=== PATIENT | female | born 1950 | race American Indian/Alaskan Native ===

== ENCOUNTER 2017-03-24 10:26 | Inpatient (IN) | payer MEDICARE, MEDICAID ==
--- NOTE | 2017-03-24 11:48 | C.PDOC ---
History Of Present Illness 66 y/o female with PMH MDD with psychosis, HTN, hyperlipidemia, osteoporosis brought to ED from adult day care for witnessed seizure. Patient states, "they told me I had a seizure". When asked about history, patient is unclear, states, "I think I had seizures before, I am not sure, I had a brain tumor". Denies pain , head trauma, incontinence, chest pain, abdominal pain, sob, visual changes, tongue bite. Patient states she does not take seizure medication. PT poor historian. Time Seen by Provider: 03/24/17 10:38 Chief Complaint (Nursing): Seizure History Per: Patient History/Exam Limitations: other (poor historian) Recent Seizure Activity Began: Unknown Length Of Seizures (Duration): Unknown Post-ictal Period: No Recent travel outside of the [place]: No Past Medical History Reviewed: Historical Data, Nursing Documentation, Vital Signs Vital Signs: Last Vital Signs Temp 97.7 F 03/24/17 10:40 Pulse 97 H 03/24/17 16:49 Resp 18 03/24/17 16:49 BP 125/78 03/24/17 16:49 Pulse Ox 99 03/24/17 16:49 - Medical History PMH: Depression, HTN, Osteoporosis - [facility] Procedures CLOSED ENDOSCOPIC BIOPSY OF LARGE INTESTINE (10/15/04) COLONOSCOPY (02/29/04) FLEXIBLE SIGMOIDOSCOPY (08/08/04) PERCUTAN NEEDLE BX OF THYROID GLAND (08/17/06) RIGID PROCTOSIGMOIDOSCOPY (09/17/04) Family History: States: No Known Family Hx - Social History Hx Alcohol Use: No Hx Substance Use: No - Immunization History Hx Tetanus Toxoid Vaccination: No Hx Influenza Vaccination: No Hx Pneumococcal Vaccination: No Review Of Systems Except As Marked, All Systems Reviewed And Found Negative. Constitutional: Negative for: Fever, Chills Cardiovascular: Negative for: Chest Pain Respiratory: Negative for: Cough, Shortness of Breath Gastrointestinal: Negative for: Vomiting Skin: Negative for: Rash Neurological: Negative for: Headache Physical Exam - Physical Exam Appears: Non-toxic, No Acute Distress, Other (no signs of post ictal) Skin: Warm, Dry Head: Atraumatic, Normacephalic Eye(s): bilateral: Normal Inspection, PERRL, EOMI Nose: Normal Oral Mucosa: Moist Neck: Normal ROM, Supple Chest: Symmetrical Cardiovascular: Rhythm Regular Respiratory: Normal Breath Sounds, No Rales, No Rhonchi, No Wheezing Gastrointestinal/Abdominal: Normal Exam, Soft, No Tenderness, No Guarding, No Rebound Back: Normal Inspection Extremity: Normal ROM, Capillary Refill (< 2 sec.) Neurological/Psych: Oriented x3, Normal Speech, Normal Cognition, Other (no focal deficits) ED Course And Treatment - Laboratory Results Result Diagrams: 03/24/17 11:43 03/24/17 11:43 O2 Sat by Pulse Oximetry: 98 (RA) Pulse Ox Interpretation: Normal - CT Scan/US CT HEAD Other Rad Studies (CT/US): Read By Radiologist, Radiology Report Reviewed CT/US Interpretation: Accession No. : [id number]. Patient Name / ID : HAYLIE NORMAN / [id number]. Exam Date : 03/24/2017 11:48:21 ( Approved ). Study Comment : Sex / Age : F / 66Y. Creator : Radha Beavers. Dictator : Nolvia Brock MD. Guide Visitor : Private Duty Lpn : Nolvia Brock MD. Approver2 : Report Date : 03/24/2017 11:56:36. My Comment : . PROCEDURE: CT HEAD WITHOUT CONTRAST. HISTORY: seizure. COMPARISON: None available. TECHNIQUE: Axial computed tomography images were obtained through the head/ brain without intravenous contrast. Radiation dose: Total exam DLP = 1106.37 mGy-cm. This CT exam was performed using one or more of the following dose reduction techniques: Automated exposure control, adjustment of the mA and/or kV according to patient size, and/or use of iterative reconstruction technique. FINDINGS: HEMORRHAGE: No intracranial hemorrhage. BRAIN: There is cystic encephalomalacia in the left temporal lobe with ex vacuo dilatation of the left temporal horn of lateral ventricle. There is no mass, mass effect or abnormal extra-axial fluid collection. VENTRICLES: The ventricles are normal in size, shape and configuration. CALVARIUM: Status post left parietal and temporal craniotomy. PARANASAL SINUSES: Predominantly clear. MASTOID AIR CELLS: Predominantly clear. OTHER FINDINGS: None. IMPRESSION: No acute intracranial abnormality. Status post left parietal and temporal craniotomy, left temporal lobe cystic encephalomalacia compatible with sequela of remote insult. Progress Note: Case discussed with Dr William, agreed upon plan and admission. Medical Decision Making Medical Decision Making: Plan: * CT Head * Labs * Reassess Progress: Dr. Kristy Sims called, whose office reports she has retired, talked with Dr. Nicole who does not know the patient. Called pt's mother, Radha, no answer. Cased discussed with medicine monotype caster Dr. William who agrees upon admission. Case discussed with Dr. Watkins, agrees on plan of treatment. Disposition - Disposition Disposition: HOSPITALIZED Disposition Time: 11:00 Condition: STABLE - Clinical Impression Clinical Impression: Seizure - PA / CUSTOMS COMPLIANCE DIRECTOR / Resident Statement MD/DO has reviewed & agrees with the documentation as recorded. - Scribe Statement The provider has reviewed the documentation as recorded by the Scribe sm All medical record entries made by the Scribe were at my direction and personally dictated by me. I have reviewed the chart and agree that the record accurately reflects my personal performance of the history, physical exam, medical decision making, and the department course for this patient. I have also personally directed, reviewed, and agree with the discharge instructions and disposition.
[2017-03-24 11:55] LABS: BASO % 0.8 % (0.0-2.0); EOS % 0.6 % (0.0-4.0); LYMPH # 0.8 K/uL (1.0-4.3); LYMPH % 14.3 % (20.0-40.0); MEAN CELL VOLUME 86.8 fL (81.0-99.0); MEAN CORPUSCULAR HEMOGLOBIN 28.4 pg (27.0-31.0); MEAN CORPUSCULAR HGB CONC 32.8 g/dL (33.0-37.0); MEAN PLATELET VOLUME 7.8 fL (7.2-11.7); MONO # 0.3 K/uL (0.0-0.8); MONO % 6.1 % (0.0-10.0); RED CELL DISTRIBUTION WIDTH 13.9 % (11.5-14.5); WHITE BLOOD COUNT 5.7 K/uL (4.8-10.8)
--- NOTE | 2017-03-24 12:10 | CT ---
PROCEDURE: CT HEAD WITHOUT CONTRAST. HISTORY: seizure COMPARISON: None available. TECHNIQUE: Axial computed tomography images were obtained through the head/brain without intravenous contrast. Radiation dose: Total exam DLP = 1106.37 mGy-cm. This CT exam was performed using one or more of the following dose reduction techniques: Automated exposure control, adjustment of the mA and/or kV according to patient size, and/or use of iterative reconstruction technique. FINDINGS: HEMORRHAGE: No intracranial hemorrhage. BRAIN: There is cystic encephalomalacia in the left temporal lobe with ex vacuo dilatation of the left temporal horn of lateral ventricle. There is no mass, mass effect or abnormal extra-axial fluid collection VENTRICLES: The ventricles are normal in size, shape and configuration. CALVARIUM: Status post left parietal and temporal craniotomy. PARANASAL SINUSES: Predominantly clear. MASTOID AIR CELLS: Predominantly clear. OTHER FINDINGS: None. IMPRESSION: No acute intracranial abnormality. Status post left parietal and temporal craniotomy, left temporal lobe cystic encephalomalacia compatible with sequela of remote insult.
[2017-03-24 12:13] LABS: ALB/GLOB RATIO 1.1 (1.0-2.1); ALCOHOL SERUM < 10 mg/dl (0-10); ALKALINE PHOSPHATASE 82 U/L (38-126); ALT/SGPT 46 U/L (9-52); AST/SGOT 40 U/L (14-36); BILIRUBIN,TOTAL 0.6 mg/dL (0.2-1.3); BLOOD UREA NITROGEN 9 mg/dL (7-17); CALCIUM 8.9 mg/dl (8.6-10.4); CARBON DIOXIDE 32 mmol/L (22-30); CHLORIDE 100 mmol/L (98-107); GFR AFRICAN-AMERICAN > 60; GLUCOSE,RANDOM 89 mg/dL (65-105); POTASSIUM 3.9 mmol/L (3.6-5.2); SODIUM 139 mmol/L (132-148); TOTAL PROTEIN 8.6 g/dL (6.3-8.3)
[2017-03-24 13:34] LABS: RBC URINE 3 /hpf (0-3); URINE BACTERIA OCC (<OCC); URINE BILIRUBIN NEGATIVE (NEGATIVE); URINE BLOOD 2+ (NEGATIVE); URINE COLOR Straw (YELLOW); URINE GLUCOSE (UA) NORMAL (Normal); URINE KETONE NEGATIVE (NEGATIVE); URINE LEUKOCYTE ESTERASE NEG Leu/uL (Negative); URINE PROTEIN NEGATIVE (NEGATIVE); URINE UROBILINOGEN NORMAL mg/dL (0.2-1.0); WBC URINE 1 /hpf (0-5)
--- NOTE | 2017-03-24 16:28 | CP.PCM.HP ---
History of Present Illness - History of Present Illness History of Present Illness: A 66-year-old female with PMHdepression, HTN, osteoporosis and psychosis presents to the ER following a seizure. C/ seizure in a [facility] today. In form of tightening of all 4 limbs, in form of 14 from mouth, associated with up rolling of eyeballs. C/Oloss of consciousness following seizure for about a few minutes. Patient did not notice seizure, she was told that she had a seizure by others. No C/Ofever, chills, vomiting, tinnitus, weakness of any extremities. Present on Admission - Present on Admission Any Indicators Present on Admission: No Past Patient History - Past Medical History & Family History Past Medical History?: Yes - Past Social History Smoking Status: Never Smoked - CARDIAC Hx Hypercholesterolemia: Yes Hx Hypertension: Yes - NEUROLOGICAL Hx Seizures: Yes Other/Comment: [place] [facility] [place] MUSCULOSKELETAL/RHEUMATOLOGICAL Hx Falls: Yes Hx Osteoporosis: Yes - PSYCHIATRIC Hx Depression: Yes Hx Substance Use: No - SURGICAL HISTORY Hx Surgeries: Yes Hx Breast Biopsy: Yes (Left cyst) Other/Comment: 2011 [place] [facility] [place]ESTH[place] Hx Anesthesia: Yes Hx Anesthesia Reactions: No Hx Malignant Hyperthermia: No Meds Allergies/Adverse Reactions: Allergies Allergy/AdvReac Type Severity Reaction Status Date / Time No Known Allergies Allergy Verified 03/24/17 10:45 Physical Exam - Constitutional Appears: Well - Head Exam Head Exam: ATRAUMATIC, NORMAL INSPECTION, NORMOCEPHALIC - Eye Exam Eye Exam: EOMI, Normal appearance, PERRL Pupil Exam: NORMAL ACCOMODATION, PERRL - ENT Exam ENT Exam: Mucous Membranes Moist, Normal Exam - Neck Exam Neck exam: Positive for: Normal Inspection - Respiratory Exam Respiratory Exam: Decreased Breath Sounds - Cardiovascular Exam Cardiovascular Exam: REGULAR RHYTHM, +S1, +S2 - GI/Abdominal Exam GI & Abdominal Exam: Diminished Bowel Sounds, Soft - Rectal Exam Rectal Exam: Deferred Results - Vital Signs Recent Vital Signs: Last Vital Signs Temp 97.7 F 03/24/17 10:40 Pulse 92 H 03/24/17 13:06 Resp 18 03/24/17 13:06 BP 135/84 03/24/17 13:06 Pulse Ox 98 03/24/17 14:21 - Labs Result Diagrams: 03/24/17 11:43 03/24/17 11:43 Labs: Laboratory Results - last 24 hr 03/24/17 03/24/17 03/24/17 11:39 11:43 11:43 WBC 5.7 RBC 4.39 Hgb 12.5 Hct 38.0 MCV 86.8 MCH 28.4 MCHC 32.8 L RDW 13.9 Plt Count 256 MPV 7.8 Neut % (Auto) 78.2 H Lymph % (Auto) 14.3 L Letcher % (Auto) 6.1 Eos % (Auto) 0.6 Baso % (Auto) 0.8 Neut # 4.5 Lymph # 0.8 L Letcher # 0.3 Eos # 0.0 Baso # 0.0 Sodium 139 Potassium 3.9 Chloride 100 Carbon Dioxide 32 H Anion Gap 11 BUN 9 Creatinine 0.8 Est GFR ( Amer) > 60 Est GFR (Non-Af Amer) > 60 POC Glucose (mg/dL) 101 Random Glucose 89 Calcium 8.9 Total Bilirubin 0.6 AST 40 H ALT 46 Alkaline Phosphatase 82 Total Creatine Kinase 438 H CK-MB (Mass) 2.45 Total Protein 8.6 H Albumin 4.5 Globulin 4.2 H Albumin/Globulin Ratio 1.1 Urine Color Urine Clarity Urine pH Ur Specific Diana Urine Protein Urine Glucose (UA) Urine Ketones Urine Blood Urine Nitrate Urine Bilirubin Urine Urobilinogen Ur Leukocyte Esterase Urine WBC (Auto) Urine RBC (Auto) Ur Squamous Epith Cells Urine Bacteria Urine Opiates Screen Urine Methadone Screen Ur Barbiturates Screen Ur Phencyclidine Scrn Ur Amphetamines Screen U Benzodiazepines Scrn U Oth Cocaine Metabols U Cannabinoids Screen Alcohol, Quantitative < 10 03/24/17 03/24/17 13:04 13:04 WBC RBC Hgb Hct MCV MCH MCHC RDW Plt Count MPV Neut % (Auto) Lymph % (Auto) Letcher % (Auto) Eos % (Auto) Baso % (Auto) Neut # Lymph # Letcher # Eos # Baso # Sodium Potassium Chloride Carbon Dioxide Anion Gap BUN Creatinine Est GFR ( Amer) Est GFR (Non-Af Amer) POC Glucose (mg/dL) Random Glucose Calcium Total Bilirubin AST ALT Alkaline Phosphatase Total Creatine Kinase CK-MB (Mass) Total Protein Albumin Globulin Albumin/Globulin Ratio Urine Color Straw Urine Clarity Clear Urine pH 7.0 Ur Specific Diana 1.004 Urine Protein Negative Urine Glucose (UA) Normal Urine Ketones Negative Urine Blood 2+ H Urine Nitrate Negative Urine Bilirubin Negative Urine Urobilinogen Normal Ur Leukocyte Esterase Neg Urine WBC (Auto) 1 Urine RBC (Auto) 3 Ur Squamous Epith Cells 1 Urine Bacteria Occ H Urine Opiates Screen Negative Urine Methadone Screen Negative Ur Barbiturates Screen Negative Ur Phencyclidine Scrn Negative Ur Amphetamines Screen Negative U Benzodiazepines Scrn Negative U Oth Cocaine Metabols Negative U Cannabinoids Screen Negative Alcohol, Quantitative
[2017-03-24] MEDS: Pantoprazole 40 mg EC Tab PO SCH (17:30)
[2017-03-24] MEDS: Enoxaparin 40 mg Syringe SC SCH (17:35)
[2017-03-24 18:09] VITALS: RESP 20
[2017-03-24] MEDS: Rosuvastatin Calcium 2.5 mg Tab PO SCH (21:52)
[2017-03-24] MEDS: buPROPion SR 150 MG TABLET PO SCH (22:08)
--- NOTE | 2017-03-25 07:32 | CP.PCM.CON ---
History of Present Illness - History of Present Illness History of Present Illness: CONSULT DICTATED SEIZURES SUB THERAPEUTIC AED ? SEC TO BUPROPION OR ABLIFY MRI/ EEG PSYCH CONSULT Past Patient History - Past Medical History & Family History Past Medical History?: Yes - Past Social History Smoking Status: Unknown If Ever Smoked - CARDIAC Hx Hypertension: Yes - NEUROLOGICAL Hx Seizures: Yes Other/Comment: brain tumor removal at [facility] [place] - MUSCULOSKELETAL/RHEUMATOLOGICAL Hx Osteoporosis: Yes - PSYCHIATRIC Hx Substance Use: No - SURGICAL HISTORY Hx Surgeries: Yes Hx Breast Biopsy: Yes (Left cyst) Other/Comment: [address] [facility] [place] - ANESTHESIA Hx Anesthesia: Yes Hx Anesthesia Reactions: No Hx Malignant Hyperthermia: No Meds Allergies/Adverse Reactions: Allergies Allergy/AdvReac Type Severity Reaction Status Date / Time No Known Allergies Allergy Verified 03/24/17 10:45 - Medications Medications: Current Medications Amlodipine Besylate (Norvasc) 5 mg PO DAILY [facility] Aripiprazole (Abilify) [address] [facility] Last Admin: 03/24/17 21:58 Dose: 30 mg Bupropion HCl (Wellbutrin Sr 150 Mg) 150 mg PO [facility] Last Admin: 03/24/17 22:08 Dose: 150 mg Enoxaparin Sodium (Lovenox) 40 mg SC DAILY [facility] Last Admin: 03/24/17 17:35 Dose: 40 mg Escitalopram Oxalate (Lexapro) 20 mg PO DAILY [facility] Hydroxyzine HCl (Atarax) 50 mg PO HS [facility] Last Admin: 03/24/17 21:52 Dose: 50 mg Iron (Ferocon) 1 cap PO DAILY [facility] Levetiracetam (Keppra) 500 mg PO BID [facility] Last Admin: 03/24/17 18:05 Dose: 500 mg Pantoprazole Sodium (Protonix Ec Tab) 40 mg PO DAILY [facility] Last Admin: 03/24/17 17:30 Dose: 40 mg Pneumococcal Polyvalent Vaccine (Pneumovax 23 Vaccine) 0.5 ml IM .ONCE ONE Stop: 03/27/17 10:01 Rosuvastatin Calcium (Crestor) 2.[address] [facility] Last Admin: 03/24/17 21:52 Dose: 2.5 mg Results - Vital Signs Recent Vital Signs: Last Vital Signs Temp 98.1 F 03/25/17 00:00 Pulse 81 03/25/17 00:00 Resp 20 03/25/17 00:00 BP 106/69 03/25/17 00:00 Pulse Ox 96 03/25/17 00:00 - Labs Result Diagrams: 03/24/17 11:43 03/24/17 11:43 Labs: Laboratory Results - last 24 hr 03/24/17 03/24/17 03/24/17 11:39 11:43 11:43 WBC 5.7 RBC 4.39 Hgb 12.5 Hct 38.0 MCV 86.8 MCH 28.4 MCHC 32.8 L RDW 13.9 Plt Count 256 MPV 7.8 Neut % (Auto) 78.2 H Lymph % (Auto) 14.3 L Drew % (Auto) 6.1 Eos % (Auto) 0.6 Baso % (Auto) 0.8 Neut # 4.5 Lymph # 0.8 L Drew # 0.3 Eos # 0.0 Baso # 0.0 Sodium 139 Potassium 3.9 Chloride 100 Carbon Dioxide 32 H Anion Gap 11 BUN 9 Creatinine 0.8 Est GFR ( Amer) > 60 Est GFR (Non-Af Amer) > 60 POC Glucose (mg/dL) 101 Random Glucose 89 Calcium 8.9 Total Bilirubin 0.6 AST 40 H ALT 46 Alkaline Phosphatase 82 Total Creatine Kinase 438 H CK-MB (Mass) 2.45 Total Protein 8.6 H Albumin 4.5 Globulin 4.2 H Albumin/Globulin Ratio 1.1 Urine Color Urine Clarity Urine pH Ur Specific [place] Urine Protein Urine Glucose (UA) Urine Ketones Urine Blood Urine Nitrate Urine Bilirubin Urine Urobilinogen Ur Leukocyte Esterase Urine WBC (Auto) Urine RBC (Auto) Ur Squamous Epith Cells Urine Bacteria Urine Opiates Screen Urine Methadone Screen Ur Barbiturates Screen Ur Phencyclidine Scrn Ur Amphetamines Screen U Benzodiazepines Scrn U Oth Cocaine Metabols U Cannabinoids Screen Alcohol, Quantitative < 10 03/24/17 03/24/17 13:04 13:04 WBC RBC Hgb Hct MCV MCH MCHC RDW Plt Count MPV Neut % (Auto) Lymph % (Auto) Drew % (Auto) Eos % (Auto) Baso % (Auto) Neut # Lymph # Drew # Eos # Baso # Sodium Potassium Chloride Carbon Dioxide Anion Gap BUN Creatinine Est GFR ( Amer) Est GFR (Non-Af Amer) POC Glucose (mg/dL) Random Glucose Calcium Total Bilirubin AST ALT Alkaline Phosphatase Total Creatine Kinase CK-MB (Mass) Total Protein Albumin Globulin Albumin/Globulin Ratio Urine Color Straw Urine Clarity Clear Urine pH 7.0 Ur Specific [place] 1.004 Urine Protein Negative Urine Glucose (UA) Normal Urine Ketones Negative Urine Blood 2+ H Urine Nitrate Negative Urine Bilirubin Negative Urine Urobilinogen Normal Ur Leukocyte Esterase Neg Urine WBC (Auto) 1 Urine RBC (Auto) 3 Ur Squamous Epith Cells 1 Urine Bacteria Occ H Urine Opiates Screen Negative Urine Methadone Screen Negative Ur Barbiturates Screen Negative Ur Phencyclidine Scrn Negative Ur Amphetamines Screen Negative U Benzodiazepines Scrn Negative U Oth Cocaine Metabols Negative U Cannabinoids Screen Negative Alcohol, Quantitative
[2017-03-25] MEDS: Ferrous Fum/Folic Acid/IF/VI 1 Cap PO SCH (09:44)
[2017-03-25] MEDS: Enoxaparin 40 mg Syringe SC SCH (09:45)
[2017-03-25] MEDS: buPROPion SR 150 MG TABLET PO SCH ×2 (09:46→21:06)
[2017-03-25] MEDS: Pantoprazole 40 mg EC Tab PO SCH (09:46)
[2017-03-25] MEDS ORDERED: Home Med 1 UNIT (Simvastatin [Simvastatin] 10 MG) PO SCH (10:00)
--- NOTE | 2017-03-25 13:35 | MRI ---
PROCEDURE: MRI BRAIN WITHOUT CONTRAST HISTORY: tumor recurrent?? COMPARISON: Noncontrast head CT from 03/24/2017 TECHNIQUE: Multiplanar, multisequence MR images of the brain were obtained without intravenous contrast enhancement. FINDINGS: HEMORRHAGE: None DWI: No evidence of an acute or early subacute infarction. BRAIN PARENCHYMA: There is ill defined T2 hyperintensity in the left lateral temporal subcortical white matter and cystic encephalomalacia in the left anterior temporal lobe. There are scattered T2/FLAIR hyperintense foci in the subcortical supratentorial white matter. There is no mass effect or abnormal extra-axial fluid collection. The midline sagittal structures are normal. VENTRICLES: There is mild age-related global parenchymal volume loss and proportionate enlargement of the ventricles and cortical sulci. There is ex vacuo dilatation of the left temporal horn and sylvian fissure related to volume loss. CRANIUM: There is normal bone marrow signal pattern. Status post parietal temporal craniotomy. ORBITS: Grossly unremarkable. PARANASAL SINUSES/MASTOIDS: Clear VASCULAR SYSTEM: Skull base flow voids intact. OTHER FINDINGS: None. IMPRESSION: Status post left parietal temporal craniotomy, cystic encephalomalacia in the left anterior temporal lobe with volume loss. Focal abnormal signal intensity in the left lateral subcortical white matter is nonspecific and could be related to gliosis however tumor cannot be excluded in the absence of intravenous contrast. MRI of the brain with intravenous contrast is recommended if there is a clinical concern for tumor recurrence. Comparison with prior MRI studies would also be helpful for definitive evaluation.
--- NOTE | 2017-03-25 15:49 | CON ---
DATE: 03/25/2017 ATTENDING PHYSICIAN: Stevenson William MD LOCATION: Room number 364, bed B. REASON FOR CONSULTATION: Recurrent seizure. CHIEF COMPLAINT: The patient was brought into the [facility] with a history of recurrent seizures. From neurological point of view, I was called in to evaluate her for further management. HISTORY OF PRESENT ILLNESS: Ms. Brooke Hernández is a 66-year-old right-handed female, usual state of health, had a seizure. She could not tell exactly when and who witnessed it. However, she had a similar seizure 5 years ago before surgery. She had a history of left-sided craniotomy because of the brain tumor in 2011. The surgery was performed in [facility], following that the patient did have seizures, had been treated with the medications. The patient has severe depression, being followed by psychiatrist and taking multiple medications for the same. PERSONAL HISTORY: She denies smoking or alcohol use. ALLERGIES: NO KNOWN ALLERGIES. MEDICATIONS AT HOME: Vitamin, bupropion, Atarax, Abilify, Lexapro, Norvasc, simvastatin, alendronate, ferrous sulfate. REVIEW OF SYSTEMS: A 12-point systems had been reviewed from neuro, seizures. PHYSICAL EXAMINATION: VITAL SIGNS: Blood pressure 106/69, mean arterial pressure of 89, respiratory rate 16, temperature afebrile. NEUROLOGIC: MENTAL STATUS EXAMINATION: She is awake, alert, oriented to person, place and time. Speech is clear. Naming, repetition, fluency, comprehension all within normal. CRANIAL NERVE EXAMINATION: Visual field intact. Pupils react to light. Extraocular movement normal. No nystagmus. No facial sensory deficit. No facial asymmetry. Hearing is normal. Tongue is midline. Good gag. MOTOR EXAMINATION: Outstretched hand with eyes closed, no drift noted. Power is symmetric on either side. Deep tendon reflexes, biceps, brachialis, triceps are 2+, both knees are 2+, both ankles are 1+. Plantars are downgoing. SENSORY EXAMINATION: Grossly intact. COORDINATION: [id number] test is intact. Gait is normal, however, it is slow paced. WORKUP: CT of the head reviewed. Post craniotomy with encephalomalacia over the left temporal lobe. BLOOD WORKUP: WBC 7.5, hemoglobin 12.5, hematocrit 38.0, platelet 256. Sodium 139, potassium 3.9, chloride 100, bicarbonate 22, BUN 9, creatinine 0.8, GFR more than 60. AST is more than 40. CPK 438, protein 8.6. Urine shows 2+ hematuria, occasional bacteria. CONCLUSION: Ms. Brooke Hernández had been presenting with seizures which is probably secondary to her subtherapeutic dose of levetiracetam; however, polypharmacy from psychiatric issue could bring down her seizure threshold. Recurrent tumor which is a new insult to the brain should be worked up during the hospitalization. RECOMMENDATIONS: I would like to continue the Keppra dose for now. MRA of the brain and EEG is requested. Polypharmacy and Psychiatric consult should be called in. Wellbutrin and Abilify are known medications could bring down the seizure threshold. That medication has to be titrated or tapered off from the system. The patient's condition has been well discussed with her. The patient will be followed while she is in the hospital. Chace Rojas MD
--- NOTE | 2017-03-25 18:56 | CP.PCM.PN ---
Subjective - Date & Time of Evaluation Date of Evaluation: 03/25/17 Time of Evaluation: 08:20 - Subjective Subjective: clinically same Objective - Vital Signs/Intake and Output Vital Signs (last 24 hours): Temp Pulse Resp BP Pulse Ox 98.0 F 76 20 115/74 95 03/25/17 16:00 03/25/17 16:00 03/25/17 16:00 03/25/17 16:00 03/25/17 16:00 Intake and Output: 03/25/17 03/25/17 06:59 18:59 Intake Total 600 780 Balance 600 780 - Medications Medications: Current Medications Amlodipine Besylate (Norvasc) 5 mg PO DAILY [facility] Last Admin: 03/25/17 09:45 Dose: 5 mg Aripiprazole (Abilify) 30 mg PO HS [facility] Last Admin: 03/24/17 21:58 Dose: 30 mg Bupropion HCl (Wellbutrin Sr 150 Mg) 150 mg PO [facility] Last Admin: 03/25/17 09:46 Dose: 150 mg Enoxaparin Sodium (Lovenox) 40 mg SC DAILY [facility] Last Admin: 03/25/17 09:45 Dose: 40 mg Escitalopram Oxalate (Lexapro) 20 mg PO DAILY [facility] Last Admin: 03/25/17 09:45 Dose: 20 mg Hydroxyzine HCl (Atarax) 50 mg PO HS [facility] Last Admin: 03/24/17 21:52 Dose: 50 mg Iron (Ferocon) 1 cap PO DAILY [facility] Last Admin: 03/25/17 09:44 Dose: 1 cap Levetiracetam (Keppra) 500 mg PO BID [facility] Last Admin: 03/25/17 09:45 Dose: 500 mg Pantoprazole Sodium (Protonix Ec Tab) 40 mg PO DAILY [facility] Last Admin: 03/25/17 09:46 Dose: 40 mg Pneumococcal Polyvalent Vaccine (Pneumovax 23 Vaccine) 0.5 ml IM .ONCE ONE Stop: 03/27/17 10:01 Rosuvastatin Calcium (Crestor) 2.5 mg PO [facility] Last Admin: 03/24/17 21:52 Dose: 2.5 mg - Labs Labs: 03/24/17 11:43 03/24/17 11:43 - Constitutional Appears: Well - Head Exam Head Exam: ATRAUMATIC, NORMAL INSPECTION, NORMOCEPHALIC - Eye Exam Eye Exam: EOMI, Normal appearance, PERRL Pupil Exam: NORMAL ACCOMODATION, PERRL - ENT Exam ENT Exam: Mucous Membranes Moist, Normal Exam - Neck Exam Neck Exam: Full ROM, Normal Inspection. absent: Lymphadenopathy - Respiratory Exam Respiratory Exam: Decreased Breath Sounds - Cardiovascular Exam Cardiovascular Exam: REGULAR RHYTHM, +S1, +S2 - GI/Abdominal Exam GI & Abdominal Exam: Soft, Diminished Bowel Sounds - Rectal Exam Rectal Exam: Deferred Assessment and Plan (1) Seizure Status: Acute - Assessment and Plan (Free Text) Plan: Patient examined. Patient better. Continue aripiprazole and follow-up plan. Continue levetiracetam and amlodipine. Continue supportive care.
[2017-03-25] MEDS: Rosuvastatin Calcium 2.5 mg Tab PO SCH (21:06)
--- NOTE | 2017-03-26 09:11 | CP.PCM.PN ---
Addendum entered and electronically signed by Néstor Salcido DO 03/26/17 16:05: dispo; pending neuro approval for d/c Addendum entered and electronically signed by Néstor Salcido DO 03/26/17 10:54: [facility] MRI w/ contrast does not suggest any increasing mass Original Note: <Néstor Salcido - Last Filed: 03/26/17 10:29> Subjective - Date & Time of Evaluation Date of Evaluation: 03/26/17 Time of Evaluation: 09:14 - Subjective Subjective: PGY2 Note for Dr. Bisi William; all management as per Dr. Bisi William Pt seen and examined at bedside today; patient states she feels great and has not had any more episodes similar to what brought her in. As per patient, when she had brain surgery to remove unknown "mass" she states she was never put on prophylactic seizure medicaitons and never warned about possiblity that psych medicines could lower seizure threshhold. The patient has no complaints today. Objective - Vital Signs/Intake and Output Vital Signs (last 24 hours): Temp Pulse Resp BP Pulse Ox 97.8 F 69 20 99/61 L 97 03/26/17 08:00 03/26/17 08:00 03/26/17 08:00 03/26/17 08:00 03/25/17 23:29 Intake and Output: 03/26/17 03/26/17 06:59 18:59 Intake Total 400 Balance 400 - Medications Medications: Current Medications Amlodipine Besylate (Norvasc) 5 mg PO DAILY [facility] Last Admin: 03/25/17 09:45 Dose: 5 mg Aripiprazole (Abilify) 30 mg PO HS [facility] Last Admin: 03/25/17 21:07 Dose: 30 mg Bupropion HCl (Wellbutrin Sr 150 Mg) 150 mg PO AMHS [facility] Last Admin: 03/25/17 21:06 Dose: 150 mg Enoxaparin Sodium (Lovenox) 40 mg SC DAILY [facility] Last Admin: 03/25/17 09:45 Dose: 40 mg Escitalopram Oxalate (Lexapro) 20 mg PO DAILY [facility] Last Admin: 03/25/17 09:45 Dose: 20 mg Hydroxyzine HCl (Atarax) 50 mg PO HS [facility] Last Admin: 03/25/17 21:06 Dose: 50 mg Iron (Ferocon) 1 cap PO DAILY [facility] Last Admin: 03/25/17 09:44 Dose: 1 cap Levetiracetam (Keppra) 500 mg PO BID [facility] Last Admin: 03/25/17 18:00 Dose: 500 mg Pantoprazole Sodium (Protonix Ec Tab) 40 mg PO DAILY [facility] Last Admin: 03/25/17 09:46 Dose: 40 mg Pneumococcal Polyvalent Vaccine (Pneumovax 23 Vaccine) 0.5 ml IM .ONCE ONE Stop: 03/27/17 10:01 Rosuvastatin Calcium (Crestor) 2.5 mg PO [facility] Last Admin: 03/25/17 21:06 Dose: 2.5 mg - Labs Labs: 03/24/17 11:43 03/24/17 11:43 - Constitutional Appears: Well, Non-toxic - Head Exam Head Exam: ATRAUMATIC - Eye Exam Eye Exam: EOMI, Normal appearance Pupil Exam: NORMAL ACCOMODATION, PERRL - ENT Exam ENT Exam: Mucous Membranes Moist - Neck Exam Neck Exam: Full ROM. absent: Lymphadenopathy - Respiratory Exam Respiratory Exam: Clear to Ausculation Bilateral, NORMAL BREATHING PATTERN. absent: Rales, Rhonchi, Wheezes - Cardiovascular Exam Cardiovascular Exam: REGULAR RHYTHM - GI/Abdominal Exam GI & Abdominal Exam: Soft, Normal Bowel Sounds - Rectal Exam Rectal Exam: NORMAL INSPECTION - Extremities Exam Extremities Exam: absent: Calf Tenderness - Back Exam Back Exam: NORMAL INSPECTION. absent: CVA tenderness (L), CVA tenderness (R) - Neurological Exam Neurological Exam: Alert, Awake, CN II-XII Intact, Normal Gait, Oriented x3 - Psychiatric Exam Psychiatric exam: Normal Affect - Skin Skin Exam: Warm Assessment and Plan - Assessment and Plan (Free Text) Assessment: 66yo F admitted for breakthrough seizures Breakthrough Seizure -patient has history of seizures and was not on seizure prophylaxis medication -started Keppra BID 500mg -seizure precautions -patient had previous brain surgery; MRI does not suggest further growth of mass that was removed however is recommending MRI w/ contrast which is still pending -pending EEG -patient was on multiple medications that lower seizure thresh-hold (Abilify/ Buproprion) which are being continued here Psychiatric Issues -c/w with Abilify/Bupropion/Lexapro as per Dr. Bisi William CAD; Chronic -c/w home meds HTN; Chronic -c/w home meds Proph Protonix Lovenox All management as per Dr. Bisi William <Gordon William S - Last Filed: 03/26/17 16:43> Objective - Vital Signs/Intake and Output Vital Signs (last 24 hours): Temp Pulse Resp BP Pulse Ox 98.0 F 81 20 116/70 99 03/26/17 15:03 03/26/17 15:03 03/26/17 15:03 03/26/17 15:03 03/26/17 15:03 Intake and Output: 03/26/17 03/26/17 06:59 18:59 Intake Total 400 500 Balance 400 500 - Medications Medications: Current Medications Amlodipine Besylate (Norvasc) 5 mg PO DAILY [facility] Last Admin: 03/26/17 10:07 Dose: Not Given Aripiprazole (Abilify) 30 mg PO HS [facility] Last Admin: 03/25/17 21:07 Dose: 30 mg Bupropion HCl (Wellbutrin Sr 150 Mg) 150 mg PO [facility] Last Admin: 03/26/17 10:06 Dose: 150 mg Enoxaparin Sodium (Lovenox) 40 mg SC DAILY [facility] Last Admin: 03/26/17 10:06 Dose: 40 mg Escitalopram Oxalate (Lexapro) 20 mg PO DAILY [facility] Last Admin: 03/26/17 10:06 Dose: 20 mg Hydroxyzine HCl (Atarax) 50 mg PO HS [facility] Last Admin: 03/25/17 21:06 Dose: 50 mg Iron (Ferocon) 1 cap PO DAILY [facility] Last Admin: 03/26/17 10:06 Dose: 1 cap Levetiracetam (Keppra) 500 mg PO BID [facility] Last Admin: 03/26/17 10:06 Dose: 500 mg Pantoprazole Sodium (Protonix Ec Tab) 40 mg PO DAILY [facility] Last Admin: 03/26/17 10:06 Dose: 40 mg Pneumococcal Polyvalent Vaccine (Pneumovax 23 Vaccine) 0.5 ml IM .ONCE ONE Stop: 03/27/17 10:01 Rosuvastatin Calcium (Crestor) 2.5 mg PO HS [facility] Last Admin: 03/25/17 21:06 Dose: 2.5 mg - Labs Labs: 03/24/17 11:43 03/24/17 11:43 Assessment and Plan (1) Seizure Status: Acute Attending/Attestation - Attestation I have personally seen and examined this patient.: Yes I have fully participated in the care of the patient.: Yes I have reviewed all pertinent clinical information, including history, physical exam and plan: Yes Notes (Text): Patient examined. Patient better. CT scan suggestive of status post left parietal and temporal craniotomy, left temporal lobe cystic encephalomalacia noted. MRI brain suggestive of no evidence of intracranial mass. Postop changes seen in the left middle cranial fossa. Patient states that she was not on any prophylactic antiseizure medications. Continue aripiprazole, bupropion and escitalopram. Continue levetiracetam. Continue supportive care.
[2017-03-26] MEDS: Enoxaparin 40 mg Syringe SC SCH (10:06)
[2017-03-26] MEDS: Ferrous Fum/Folic Acid/IF/VI 1 Cap PO SCH (10:06)
[2017-03-26] MEDS: Pantoprazole 40 mg EC Tab PO SCH (10:06)
[2017-03-26] MEDS: buPROPion SR 150 MG TABLET PO SCH ×2 (10:06→21:57)
--- NOTE | 2017-03-26 11:08 | MRI ---
PROCEDURE: MRI BRAIN WITH CONTRAST HISTORY: HEADACHES COMPARISON: Unenhanced head CT 03/24/2017 as well as unenhanced brain MRI 03/25/2017, 12:03 p.m. TECHNIQUE: Multiplanar, multisequence MR images of the brain were obtained following the intravenous administration of 12 cc of Omniscan. FINDINGS: HEMORRHAGE: None DWI: No evidence of an acute or early subacute infarction. BRAIN PARENCHYMA: There is no suspicious intracranial enhancement appreciated including along the areas of abnormal sub cm long TR hyper intensity of the prior bilateral cerebral hemispheres as well as at the postoperative site at the anterior left temporal lobe in this patient status post left temporoparietal craniotomy. White-matter changes are felt to be a function of age related neuro degenerative change, specifically chronic microangiopathy, and not metastasis or recurrence of tumor. Right parietal exostosis again appreciated. VENTRICLES: Unremarkable. No hydrocephalus. CRANIUM: Unremarkable. ORBITS: Grossly unremarkable. PARANASAL SINUSES/MASTOIDS: Clear VASCULAR SYSTEM: Skull base flow voids intact. OTHER FINDINGS: None. IMPRESSION: No evidence to suggest enhancing intracranial mass above or below the tentorium including throughout the brainstem. Postop changes again seen the left middle cranial fossa with no suspicious enhancement related. White-matter changes throughout the cerebrum are felt to be a function of chronic microangiopathy rather than metastatic disease/recurrent tumor.
--- NOTE | 2017-03-26 18:49 | CP.PCM.PN ---
Subjective - Date & Time of Evaluation Date of Evaluation: 03/26/17 Time of Evaluation: 08:00 - Subjective Subjective: clinically same Objective - Vital Signs/Intake and Output Vital Signs (last 24 hours): Temp Pulse Resp BP Pulse Ox 98.0 F 81 20 116/70 99 03/26/17 15:03 03/26/17 15:03 03/26/17 15:03 03/26/17 15:03 03/26/17 15:03 Intake and Output: 03/26/17 03/26/17 06:59 18:59 Intake Total 400 500 Balance 400 500 - Medications Medications: Current Medications Amlodipine Besylate (Norvasc) 5 mg PO DAILY [facility] Last Admin: 03/26/17 10:07 Dose: Not Given Aripiprazole (Abilify) 30 mg PO HS [facility] Last Admin: 03/25/17 21:07 Dose: 30 mg Bupropion HCl (Wellbutrin Sr 150 Mg) 150 mg PO [facility] Last Admin: 03/26/17 10:06 Dose: 150 mg Enoxaparin Sodium (Lovenox) 40 mg SC DAILY [facility] Last Admin: 03/26/17 10:06 Dose: 40 mg Escitalopram Oxalate (Lexapro) 20 mg PO DAILY [facility] Last Admin: 03/26/17 10:06 Dose: 20 mg Hydroxyzine HCl (Atarax) 50 mg PO HS [facility] Last Admin: 03/25/17 21:06 Dose: 50 mg Iron (Ferocon) 1 cap PO DAILY [facility] Last Admin: 03/26/17 10:06 Dose: 1 cap Levetiracetam (Keppra) 500 mg PO BID [facility] Last Admin: 03/26/17 17:35 Dose: 500 mg Pantoprazole Sodium (Protonix Ec Tab) 40 mg PO DAILY [facility] Last Admin: 03/26/17 10:06 Dose: 40 mg Pneumococcal Polyvalent Vaccine (Pneumovax 23 Vaccine) 0.5 ml IM .ONCE ONE Stop: 03/27/17 10:01 Rosuvastatin Calcium (Crestor) 2.5 mg PO [facility] Last Admin: 03/25/17 21:06 Dose: 2.5 mg - Labs Labs: 03/24/17 11:43 03/24/17 11:43 - Constitutional Appears: Well - Head Exam Head Exam: ATRAUMATIC, NORMAL INSPECTION, NORMOCEPHALIC - Eye Exam Eye Exam: EOMI, Normal appearance, PERRL Pupil Exam: NORMAL ACCOMODATION, PERRL - ENT Exam ENT Exam: Mucous Membranes Moist, Normal Exam - Neck Exam Neck Exam: Full ROM, Normal Inspection. absent: Lymphadenopathy - Respiratory Exam Respiratory Exam: Decreased Breath Sounds - Cardiovascular Exam Cardiovascular Exam: REGULAR RHYTHM, +S1, +S2 - GI/Abdominal Exam GI & Abdominal Exam: Soft, Diminished Bowel Sounds - Rectal Exam Rectal Exam: Deferred Assessment and Plan (1) Seizure Status: Acute - Assessment and Plan (Free Text) Plan: Patient examined. Patient better. Continue aripiprazole and bupropion. Continue amlodipine. Continue levetiracetam. Continue supportive care.
[2017-03-26] MEDS: Rosuvastatin Calcium 2.5 mg Tab PO SCH (21:57)
--- NOTE | 2017-03-27 08:01 | PN ---
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 PHYSICAL EXAMINATION: VITAL SIGNS: Blood pressure 106/65, mean arterial pressure of 78, respiratory rate 18, temperature afebrile. NEUROLOGIC: The patient is more awake, alert, oriented to person, place and time. Speech is clear. She knows where she is. Moving all 4 extremities against gravity. LABORATORY DATA: Her workup, MRI of the brain with and without Gadolinium had been reviewed by me. It does not show any enhancing intracranial mass noted with existing post craniotomy and encephalomalacia noted over her left middle cranial fossa region. The patient also showed chronic microvascular small vessel disease. ASSESSMENT AND PLAN: The patient on Keppra. I will let she continue 500 mg twice a day. The patient is neurologically stable. The patient will be signing off from today and if there are any new changes, please do not hesitate to call me. Chace Rojas MD
[2017-03-27] MEDS ORDERED: Pneumococcal 23-Valent Vaccine IM ONE (10:00)
[2017-03-27] MEDS ORDERED: Influenza Vaccine 60 mcg/0.5 mL SYR (4YR UP) IM ONE (10:00)
[2017-03-27] MEDS: Ferrous Fum/Folic Acid/IF/VI 1 Cap PO SCH (10:50)
[2017-03-27] MEDS: Pantoprazole 40 mg EC Tab PO SCH (10:50)
[2017-03-27] MEDS: Enoxaparin 40 mg Syringe SC SCH (10:50)
[2017-03-27] MEDS: buPROPion SR 150 MG TABLET PO SCH (10:51)
--- NOTE | 2017-03-27 11:13 | CP.PCM.PN ---
<GabeGlenn - Last Filed: 03/27/17 11:11> Subjective - Date & Time of Evaluation Date of Evaluation: 03/27/17 Time of Evaluation: 07:35 - Subjective Subjective: PGY2 Resident - Medicine Progress Note Pt seen and examined at bedside today; patient reports feeling well and is asking to go home. Neurology has signed off and will followup with her as an outpatient. She is tolerating her diet, has not had any acute seizures, and is having normal BMs and is urinating. Denies fever, chills, headache, changes in vision, chest pain, palpitations, dyspnea, cough, abdominal pain, nausea/ vomiting, diarrhea/constipation, or any additional acute complaints. Patient is stable for discharge per Dr. Bisi William. Patient should resume all medications as outlined in this document. Additionally, patient should take the new medications listed below (scripts provided). 1. Please make an appointment and follow up with your Primary Doctor Dr. Bisi William within one week of discharge. 2. Please make an appointment and follow up with your Neurologist, Dr. Rojas as an outpatient. You can call his office for an appointment. Patient should return to ED immediately if symptoms return or worsen. Instructions discussed with patient who understood and agreed. Newly prescribed medications: Keppra 500mg PO twice daily Objective - Vital Signs/Intake and Output Vital Signs (last 24 hours): Temp Pulse Resp BP Pulse Ox 98 F 80 20 97/63 L 96 03/27/17 08:34 03/27/17 08:34 03/27/17 08:34 03/27/17 08:34 03/27/17 08:34 Intake and Output: 03/27/17 03/27/17 06:59 18:59 Intake Total 300 Output Total 500 Balance -200 - Medications Medications: Current Medications Amlodipine Besylate (Norvasc) 5 mg PO DAILY [facility] Last Admin: 03/27/17 10:50 Dose: 5 mg Aripiprazole (Abilify) 30 mg PO HS [facility] Last Admin: 03/26/17 21:58 Dose: 30 mg Bupropion HCl (Wellbutrin Sr 150 Mg) 150 mg PO AMHS [facility] Last Admin: 03/27/17 10:51 Dose: 150 mg Enoxaparin Sodium (Lovenox) 40 mg SC DAILY [facility] Last Admin: 03/27/17 10:50 Dose: 40 mg Escitalopram Oxalate (Lexapro) 20 mg PO DAILY [facility] Last Admin: 03/27/17 10:51 Dose: 20 mg Hydroxyzine HCl (Atarax) 50 mg PO HS [facility] Last Admin: 03/26/17 21:58 Dose: 50 mg Iron (Ferocon) 1 cap PO DAILY [facility] Last Admin: 03/27/17 10:50 Dose: 1 cap Levetiracetam (Keppra) 500 mg PO BID [facility] Last Admin: 03/27/17 10:52 Dose: 500 mg Pantoprazole Sodium (Protonix Ec Tab) 40 mg PO DAILY [facility] Last Admin: 03/27/17 10:50 Dose: 40 mg Rosuvastatin Calcium (Crestor) 2.5 mg PO HS [facility] Last Admin: 03/26/17 21:57 Dose: 2.5 mg - Labs Labs: 03/24/17 11:43 03/24/17 11:43 - Additional Findings Additional findings: - Constitutional Appears: Well, Non-toxic - Head Exam Head Exam: ATRAUMATIC - Eye Exam Eye Exam: EOMI, Normal appearance Pupil Exam: NORMAL ACCOMODATION, PERRL - ENT Exam ENT Exam: Mucous Membranes Moist - Neck Exam Neck Exam: Full ROM. absent: Lymphadenopathy - Respiratory Exam Respiratory Exam: Clear to Ausculation Bilateral, NORMAL BREATHING PATTERN. absent: Rales, Rhonchi, Wheezes - Cardiovascular Exam Cardiovascular Exam: REGULAR RHYTHM, +S1, +S2 - GI/Abdominal Exam GI & Abdominal Exam: Soft, Normal Bowel Sounds - Rectal Exam Rectal Exam: NORMAL INSPECTION - Extremities Exam Extremities Exam: absent: Calf Tenderness - Back Exam Back Exam: NORMAL INSPECTION. absent: CVA tenderness (L), CVA tenderness (R) - Neurological Exam Neurological Exam: Alert, Awake, CN II-XII Intact, Normal Gait, Oriented x3 - Psychiatric Exam Psychiatric exam: Normal Affect - Skin Skin Exam: Warm Assessment and Plan - Assessment and Plan (Free Text) Assessment: 66yo F admitted for breakthrough seizures Breakthrough Seizure 03/27: Patient has not had a seizure in several days, reports feeling well. Stable from Neurology standpoint, per Dr. Rojas. To followup with Dr. Rojas as outpatient. -patient has history of seizures and was not on seizure prophylaxis medication -started Keppra BID 500mg -seizure precautions -patient had previous brain surgery; MRI does not suggest further growth of mass that was removed however is recommending MRI w/ contrast which is still pending -pending EEG -patient was on multiple medications that lower seizure thresh-hold (Abilify/ Buproprion) which are being continued here Psychiatric Issues -c/w with Abilify/Bupropion/Lexapro as per Dr. Bisi William CAD; Chronic -c/w home meds HTN; Chronic -c/w home meds Proph Protonix Lovenox All management as per Dr. Bisi William <Gordon William S - Last Filed: 03/30/17 12:31> Objective - Vital Signs/Intake and Output Vital Signs (last 24 hours): Temp Pulse Resp BP Pulse Ox 98.2 F 71 20 105/71 97 03/27/17 15:00 03/27/17 15:00 03/27/17 15:00 03/27/17 15:00 03/27/17 15:00 - Labs Labs: 03/24/17 11:43 03/24/17 11:43 Assessment and Plan (1) Seizure Status: Acute Attending/Attestation - Attestation I have personally seen and examined this patient.: Yes I have fully participated in the care of the patient.: Yes I have reviewed all pertinent clinical information, including history, physical exam and plan: Yes Notes (Text): Patient examined. Patient is stable for discharge. Follow-up also with the neurologist. Continue with amlodipine. Continue aripiprazole and bupropion. Continue levetiracetam. Continue supportive care.
--- NOTE | 2017-03-27 14:23 | EEG ---
DATE: 03/25/2017 This is [id number] electroencephalogram of an awake and drowsy adult. During the study, photic stimulation was performed. Hyperventilation was not performed. The resting electroencephalogram consists of low amplitude faster beta activity superimposed with moderate voltage theta activities noted. This is followed with high amplitude delta activities. Some movement artifacts, multiple artifacts contaminated the background rhythm. The photic stimulation did not evoke driving response noted at 2 to 20 Hz. IMPRESSION: This is an abnormal electroencephalogram because of persistent flowing throughout the record suggestive of bilateral cerebral dysfunction. This is probably secondary to metabolic, vascular, or degenerative process. Please correlate the findings with the neurological and radiological studies. Chace Rojas MD
[2017-03-27 16:52] VITALS: BP 105/71; PULSE 71; TEMP 98.2; O2SAT 97
--- NOTE | 2017-03-27 19:53 | CP.PCM.PN ---
Subjective - Date & Time of Evaluation Date of Evaluation: 03/27/17 Time of Evaluation: 07:20 - Subjective Subjective: clinically same Objective - Vital Signs/Intake and Output Vital Signs (last 24 hours): Temp Pulse Resp BP Pulse Ox 98.2 F 71 20 105/71 97 03/27/17 15:00 03/27/17 15:00 03/27/17 15:00 03/27/17 15:00 03/27/17 15:00 Intake and Output: 03/27/17 03/28/17 18:59 06:59 Intake Total 400 Balance 400 - Medications Medications: Current Medications Amlodipine Besylate (Norvasc) 5 mg PO DAILY [facility] Last Admin: 03/27/17 10:50 Dose: 5 mg Aripiprazole (Abilify) 30 mg PO HS [facility] Last Admin: 03/26/17 21:58 Dose: 30 mg Bupropion HCl (Wellbutrin Sr 150 Mg) 150 mg PO [facility] Last Admin: 03/27/17 10:51 Dose: 150 mg Enoxaparin Sodium (Lovenox) 40 mg SC DAILY [facility] Last Admin: 03/27/17 10:50 Dose: 40 mg Escitalopram Oxalate (Lexapro) 20 mg PO DAILY [facility] Last Admin: 03/27/17 10:51 Dose: 20 mg Hydroxyzine HCl (Atarax) 50 mg PO HS [facility] Last Admin: 03/26/17 21:58 Dose: 50 mg Iron (Ferocon) 1 cap PO DAILY [facility] Last Admin: 03/27/17 10:50 Dose: 1 cap Levetiracetam (Keppra) 500 mg PO BID [facility] Last Admin: 03/27/17 17:57 Dose: 500 mg Pantoprazole Sodium (Protonix Ec Tab) 40 mg PO DAILY [facility] Last Admin: 03/27/17 10:50 Dose: 40 mg Rosuvastatin Calcium (Crestor) 2.5 mg PO HS [facility] Last Admin: 03/26/17 21:57 Dose: 2.5 mg - Labs Labs: 03/24/17 11:43 03/24/17 11:43 - Constitutional Appears: Well - Head Exam Head Exam: ATRAUMATIC, NORMAL INSPECTION, NORMOCEPHALIC - Eye Exam Eye Exam: EOMI, Normal appearance, PERRL Pupil Exam: NORMAL ACCOMODATION, PERRL - ENT Exam ENT Exam: Mucous Membranes Moist, Normal Exam - Neck Exam Neck Exam: Full ROM, Normal Inspection. absent: Lymphadenopathy - Respiratory Exam Respiratory Exam: Decreased Breath Sounds - Cardiovascular Exam Cardiovascular Exam: REGULAR RHYTHM, +S1, +S2 - GI/Abdominal Exam GI & Abdominal Exam: Soft, Diminished Bowel Sounds - Rectal Exam Rectal Exam: Deferred Assessment and Plan (1) Seizure Status: Acute - Assessment and Plan (Free Text) Plan: Patient examined. Patient is stable for discharge. Follow-up also with the neurologist. Continue with amlodipine. Continue aripiprazole and bupropion. Continue levetiracetam. Continue supportive care.
== END 2017-03-27 21:30 | disposition home or self-care (01) | DRG 101 ==
LOC: C.ER 10:26 → C.9E 13:18 → C.3T 16:39 → OBSVTOIN 03-25 15:07
PROVIDERS: ADMIT Internal Medicine Nephrology; ATTEND Internal Medicine Nephrology
DX: G40.909 Epilepsy, unspecified, not intractable, without status epilepticus (principal); G93.89 Other specified disorders of brain; I10 Essential (primary) hypertension; I25.10 Atherosclerotic heart disease of native coronary artery without angina pectoris; M81.0 Age-related osteoporosis without current pathological fracture; E78.5 Hyperlipidemia, unspecified; F32.9 Major depressive disorder, single episode, unspecified; F29 Unspecified psychosis not due to a substance or known physiological condition; E78.00 Pure hypercholesterolemia, unspecified; Z86.011 Personal history of benign neoplasm of the brain

== ENCOUNTER 2017-05-14 07:50 | Day surgery (SDC) | payer MEDICARE, MEDICAID ==
[2017-05-14 08:18] VITALS: BMI 27.0
[2017-05-14] MEDS ORDERED: Lactated Ringer's 1,000 ML IV ONE (12:25)
--- NOTE | 2017-05-14 12:30 | CP.SDSHP ---
Same Day Surgery H & P - History Proposed Procedure: colonoscopy Pre-Op Diagnosis: screening - Previous Medical/Surgical History Cardiac: Hypertension Neuro: Seizure Disorder Comments: hyperlipidemia - Allergies Allergies: Allergies No Known Allergies Allergy (Verified 05/14/17 08:15) - Physical Exam General Appearance: NAD Vital Signs: Vital Signs 05/14/17 08:15 Temperature 96.9 F L Pulse Rate 80 Respiratory 20 Rate Blood Pressure 150/79 O2 Sat by Pulse 98 Oximetry Mental Status: Alert & Oriented x3 Neuro: WNL Heart: WNL Lungs: WNL GI: WNL - {Optional Preform as Required} Abdomen: WNL - Impression Pt. Evaluated Today:Candidate for Anesthesia & Procedure: Yes - Date & Time Date: 05/14/17 Time: 12:30 Short Stay Discharge - Short Stay Discharge Admitting Diagnosis/Reason for Visit: SCREENING Disposition: HOME/ ROUTINE
[2017-05-14 14:31] VITALS: BP 136/71; PULSE 82; RESP 19; TEMP 97.1; O2SAT 100
== END 2017-05-14 14:25 | disposition home or self-care (01) ==
LOC: C.ENDO 07:50
PROVIDERS: ATTEND Internal Medicine Gastroenterology
DX: Z12.11 Encounter for screening for malignant neoplasm of colon (principal); E78.5 Hyperlipidemia, unspecified; I10 Essential (primary) hypertension; G40.909 Epilepsy, unspecified, not intractable, without status epilepticus; K62.89 Other specified diseases of anus and rectum; K64.1 Second degree hemorrhoids
CPT/HCPCS: G0121; J7120